=== PATIENT | male | born 1950 | race Two or more races ===

== ENCOUNTER 2020-08-06 11:12 | Outpatient (CLI) | payer OTHER | END 2020-08-06 16:22 | disposition home or self-care (01) | LOC: OFIC 805 11:12 | PROVIDERS: ATTEND Otolaryngology | DX: H92.01 Otalgia, right ear (principal); R09.81 Nasal congestion; J30.89 Other allergic rhinitis; K21.9 Gastro-esophageal reflux disease without esophagitis ==

== ENCOUNTER 2022-12-10 16:46 | Inpatient (IN) | payer OTHER ==
[~2022-12-10] VITALS: Ht 162.6 cm; Wt 129.7 kg
[~2022-12-10 16:46] MED LIST: ACETAMINOPHEN650 M2 PO; ATORVASTATIN CA10 MG; AZITHROMYCIN250 MG PO; BIOTIN1 MG; BUDESONIDE0.5 MG/21 IH; BUSPIRONE HCL5 GM MC; CENTRUM SILVER1 EAC3; COZAAR25 MG; COZAAR25 MG PO; ECOTRIN81 MG; FENOFIBRATE50 MG; GILTUSS TR TAB1 EACH PO; HUMALOG MI100 UNIT/2; INTESTINEX680 M1 PO; JANUVIA25 MG; JANUVIA25 MG PO; JARDIANCE25 MG; JARDIANCE25 MG PO; KETO10TA2 PO; LANTUS SOL100 UNIT/1; LANTUS SOL100 UNIT/1 SQ; LEVALBUTER0.63 MG/3 IH; LIPITOR40 MG PO; METFORMIN HCL1000 M2; MONTELUKAST SOD10 MG; MUCINEX D ER 11 EACH PO; MUCINEX DM ER1 EACH PO; NABUMETONE500 MG PO; NEURONTIN300 MG PO; NORFLEX100MG PO; PEPCID20 MG PO; PERCOCET 5/3251 TAB PO; RISEDRONATE SO150 MG; TRULICITY1.5 MG/0.5 SQ; VITAMIN B-121000 MC2; VITAMIN C250 MG; VOLTAREN ARTHRI20 GM; XARELTO10 MG PO; ZYRTEC10 M3 PO
--- NOTE | 2022-12-10 17:01 | NUR ---
PTE SE OBSERVA A/O X4. PTE VERBALIZA QUE SE GREGORY Y SE LASTIMO EL CODO TIM. PTE SE OBSERVA CON DXT EN 286 MG/DL ARMEN PTE VERBALIZA QUE COMIO HACE 1 HR.
--- NOTE | 2022-12-10 17:44 | NUR ---
PACIENTE EVLUADA POR DR ZIYAD [place] [facility]. ESTUDIOS NOTIFICADOS A PERSONAL CORRESPONDIENTE
[2022-12-11] MEDS ORDERED: VITAMIN C500 M1 (08:36)
[2022-12-11] MEDS ORDERED: FLONASE16 GM (08:36)
[2022-12-11] MEDS ORDERED: ST. JOSEPH ASPI81 M2 (08:36)
[2022-12-11] MEDS ORDERED: DICLOFENAC POTA50 MG (08:36)
[2022-12-11] MEDS ORDERED: FENOFIBRATE48 MG (08:36)
[2022-12-11] MEDS ORDERED: ATORVASTATIN CA40 MG (08:36)
[2022-12-11] MEDS ORDERED: RISEDRONATE SOD35 MG (08:36)
[2022-12-11] MEDS ORDERED: JANUVIA50 MG (08:36)
[2022-12-11] MEDS ORDERED: LOSARTAN POTASS25 MG (08:37)
[2022-12-11] MEDS ORDERED: GABAPENTIN300 M2 (08:37)
[2022-12-11] MEDS ORDERED: OMEPRAZOLE20 MG (08:37)
[2022-12-11] MEDS ORDERED: LORATADINE10 MG (08:37)
[2022-12-11] MEDS ORDERED: GEMFIBROZIL600 MG (08:37)
[2022-12-11] MEDS ORDERED: JARDIANCE25 MG (08:38)
[2022-12-11] MEDS ORDERED: VITAMIN B-122000 MCG (08:38)
== END 2022-12-15 22:26 | DRG 482 ==
LOC: ER 16:46 → SURG 22:32 → MEDI 22:32 → SURG 12-11 22:12
PROVIDERS: Orthopaedic Surgery; ADMIT Specialist; ATTEND Specialist
PROC: BW28ZZZ Computerized Tomography (CT Scan) of Head (ICD-10-PCS; 2022-12-10)
PROC: 0PSL04Z Reposition Left Ulna with Internal Fixation Device, Open Approach (ICD-10-PCS; 2022-12-11)
PROC: 0PW Upper Bones, Revision (ICD-10-PCS; 2022-12-11)
PROC: 0QH706Z Insertion of Intramedullary Internal Fixation Device into Left Upper Femur, Open Approach (ICD-10-PCS; principal; 2022-12-11 22:15)
PROC: 0QU70JZ Supplement Left Upper Femur with Synthetic Substitute, Open Approach (ICD-10-PCS; 2022-12-13)
DX: S72.142A Displaced intertrochanteric fracture of left femur, initial encounter for closed fracture (principal); S52.032A Displaced fracture of olecranon process with intraarticular extension of left ulna, initial encounter for closed fracture; S72.002A Fracture of unspecified part of neck of left femur, initial encounter for closed fracture; W01.0XXA Fall on same level from slipping, tripping and stumbling without subsequent striking against object, initial encounter; I10 Essential (primary) hypertension; E11.9 Type 2 diabetes mellitus without complications; Z79.4 Long term (current) use of insulin

== ENCOUNTER 2022-12-30 08:27 | Outpatient (CLI) | payer OTHER ==
[~2022-12-30 08:27] MED LIST changes: +ATORVASTATIN CA40 MG; +DICLOFENAC POTA50 MG; +FENOFIBRATE48 MG; +FLONASE16 GM; +GABAPENTIN300 M2; +GEMFIBROZIL600 MG; +JANUVIA50 MG; +LORATADINE10 MG; +LOSARTAN POTASS25 MG; +OMEPRAZOLE20 MG; +RISEDRONATE SOD35 MG; +ST. JOSEPH ASPI81 M2; +VITAMIN B-122000 MCG; +VITAMIN C500 M1
== END 2022-12-30 08:31 | disposition home or self-care (01) ==
LOC: RAD 08:27
PROVIDERS: ATTEND Orthopaedic Surgery
DX: S52.032D Displaced fracture of olecranon process with intraarticular extension of left ulna, subsequent encounter for closed fracture with routine healing (principal); S72.142D Displaced intertrochanteric fracture of left femur, subsequent encounter for closed fracture with routine healing

== ENCOUNTER 2023-01-06 10:18 | Outpatient (CLI) | payer OTHER | END 2023-01-06 10:26 | disposition home or self-care (01) | LOC: RAD 10:18 | PROVIDERS: ATTEND Orthopaedic Surgery | DX: S52.032D Displaced fracture of olecranon process with intraarticular extension of left ulna, subsequent encounter for closed fracture with routine healing (principal) ==

== ENCOUNTER 2023-01-21 12:36 | Outpatient (CLI) | payer OTHER | END 2023-01-21 12:38 | disposition home or self-care (01) | LOC: RAD 12:36 | PROVIDERS: ATTEND Orthopaedic Surgery | DX: S52.032D Displaced fracture of olecranon process with intraarticular extension of left ulna, subsequent encounter for closed fracture with routine healing (principal); S72.142D Displaced intertrochanteric fracture of left femur, subsequent encounter for closed fracture with routine healing ==

== ENCOUNTER 2023-02-17 11:00 | Outpatient (CLI) | payer OTHER | END 2023-02-17 11:25 | disposition home or self-care (01) | LOC: TOM 11:00 | PROVIDERS: ATTEND Internal Medicine Geriatric Medicine | DX: R51.0 Headache with orthostatic component, not elsewhere classified (principal) ==

== ENCOUNTER 2024-04-06 12:46 | Outpatient (CLI) | payer OTHER | END 2024-04-06 12:54 | disposition home or self-care (01) | LOC: RAD 12:46 | PROVIDERS: ATTEND Orthopaedic Surgery | DX: M25.551 Pain in right hip (principal); M25.561 Pain in right knee; M25.522 Pain in left elbow ==

== ENCOUNTER → 2024-04-07 11:32 | Outpatient (CLI) | payer OTHER ==
[2024-04-07 13:11] LABS: ALBUMIN 3.7 gm/dL (3.4-5.0); BILIRUBIN TOTAL 0.38 mg/dL (0.3-1.2); CALCIUM 8.6 mg/dL (8.5-10.1); CREATININE SERUM 0.64 mg/dL (0.55-1.02); GFR 90.96; GLOBULINA 3.1 G/DL (2.4-3.5); POTASSIUM 4.05 mEq/L (3.5-5.1); TOTAL PROTEIN 6.8 gm/dL (6.4-8.2)
[2024-04-10 11:10] LABS: CALCIUM IONIZED 4.8 mg/dL (4.5-5.6)
[2024-04-11 13:11] LABS: VITAMIN K 1.69 ng/mL (0.10-2.20)
== END | disposition home or self-care (01) ==
LOC: LAB 11:32
PROVIDERS: ATTEND Orthopaedic Surgery
DX: E55.9 Vitamin D deficiency, unspecified (principal); M85.9 Disorder of bone density and structure, unspecified; E56.1 Deficiency of vitamin K; E21.3 Hyperparathyroidism, unspecified; E88.89 Other specified metabolic disorders; M81.8 Other osteoporosis without current pathological fracture

== ENCOUNTER 2024-11-06 10:51 | Outpatient (CLI) | payer OTHER ==
[~2024-11-06 10:51] MED LIST changes: +DULOXETINE HCL30 MG PO; +PREGABALIN25 MG PO
== END 2024-11-06 10:54 | disposition home or self-care (01) ==
LOC: RAD 10:51
PROVIDERS: ATTEND Orthopaedic Surgery
DX: M25.522 Pain in left elbow (principal); M25.551 Pain in right hip; M25.552 Pain in left hip

== ENCOUNTER 2024-11-22 09:10 | Outpatient (CLI) | payer OTHER ==
[2024-11-22 10:35] LABS: COL EPI 151 SECONDS (82-175)
[2024-11-22 10:40] LABS: EOS # 0.16 (0.04-0.54); EOS % 3.5 % (0.7-7.0); HEMATOCRIT 38.1 % (34.1-44.9); LYMPH # 1.32 (1.18-3.74); LYMPH % 29.1 % (19.3-53.1); MEAN CORPUSCULAR HEMOGLOBIN 30.4 pg (25.6-32.2); MONO # 0.46 (0.24-0.82); MONO % 10.1 % (4.7-12.5); NEUT # 2.59 (1.56-6.13); NEUT % 57.1 % (34.0-71.1); PLATELET COUNT 157 K/uL (163-369); RED BLOOD COUNT 4.27 M/uL (3.93-5.22); RED CELL DISTRIBUTION WIDTH 12.7 % (11.6-14.4)
[2024-11-22 11:02] LABS: INR 0.99; PARTIAL THROMBOPLASTIN TIME 24.8 SECONDS (22.0-34.0); PROTHROMBIN TIME 10.8 SECONDS (9.0-11.5)
[2024-11-22 12:21] LABS: PH,URINE 5.5 (5.0-8.0); URINE APPEARANCE Clear; URINE BILIRRUBIN Negative (NEGATIVE); URINE BLOOD Negative; URINE COLOR Yellow; URINE KETONE Negative (NEGATIVE); URINE LEUKOCYTE Small; URINE NITRATE Negative; URINE PROTEIN Negative (NEGATIVE)
[2024-11-22 12:22] LABS: URINE BACTERIA 3961.9 uL (0.0-1933); URINE EPITHELIAL CELLS 77.7 uL (0.0-38.8); URINE RBC 2.9 uL (0.0-20.8); URINE WBC 253.1 uL (0.0-23.2)
[2024-11-22 12:25] LABS: URINE CAST 0.29 uL (0.0-1.40); URINE GLUCOSE >=1000 MG/DL (NEGATIVE)
[2024-11-22 13:18] LABS: ALBUMIN 3.6 gm/dL (3.4-5.0); BILIRUBIN TOTAL 0.69 mg/dL (0.3-1.2); CALCIUM 8.7 mg/dL (8.5-10.1); CREATININE SERUM 0.78 mg/dL (0.55-1.02); GFR 72.19; GLOBULINA 3.1 G/DL (2.4-3.5); POTASSIUM 4.37 mEq/L (3.5-5.1); TOTAL PROTEIN 6.7 gm/dL (6.4-8.2)
== END 2024-11-22 09:23 | disposition home or self-care (01) ==
LOC: RAD 09:10 → LAB 09:10
PROVIDERS: ATTEND Orthopaedic Surgery
DX: D64.9 Anemia, unspecified (principal); E88.89 Other specified metabolic disorders; D68.8 Other specified coagulation defects; N39.0 Urinary tract infection, site not specified; Z11.9 Encounter for screening for infectious and parasitic diseases, unspecified; Z22.322 Carrier or suspected carrier of Methicillin resistant Staphylococcus aureus; Z76.89 Persons encountering health services in other specified circumstances

== ENCOUNTER 2024-11-22 10:49 | Outpatient (CLI) | payer OTHER | END 2024-11-22 10:50 | disposition home or self-care (01) | LOC: RAD 10:49 | PROVIDERS: ATTEND Orthopaedic Surgery | DX: Z76.89 Persons encountering health services in other specified circumstances (principal) ==

== ENCOUNTER 2025-02-12 12:57 | Emergency (ER) | payer OTHER ==
[~2025-02-12] VITALS: Ht 162.6 cm; Wt 60.8 kg
[2025-02-12] MEDS ORDERED: GLIPIZIDE5 MG PO (13:19)
[2025-02-12] MEDS ORDERED: METHYLPREDNISOLONE SOD SUCC 125 MG VIAL IM ONE (13:30)
[2025-02-12] MEDS ORDERED: VAGISIL CREAM28 G1 TOP (14:42)
[2025-02-12] MEDS ORDERED: MEDROLPACK PO (14:42)
== END 2025-02-12 14:46 | disposition home or self-care (01) ==
LOC: ER 12:57
DX: M25.50 Pain in unspecified joint (principal); E11.9 Type 2 diabetes mellitus without complications; Z79.84 Long term (current) use of oral hypoglycemic drugs; Z88.0 Allergy status to penicillin
CPT/HCPCS: 73130; 96372; 99283; J3490

== ENCOUNTER 2025-02-14 13:02 | Outpatient (CLI) | payer OTHER ==
[~2025-02-14 13:02] MED LIST changes: +GLIPIZIDE5 MG PO; +MEDROLPACK PO; +VAGISIL CREAM28 G1 TOP
== END 2025-02-14 13:06 | disposition home or self-care (01) ==
LOC: RAD 13:02
PROVIDERS: ATTEND Orthopaedic Surgery
DX: T84.84XD Pain due to internal orthopedic prosthetic devices, implants and grafts, subsequent encounter (principal)

== ENCOUNTER 2025-04-15 14:00 | Emergency (ER) | payer OTHER ==
[~2025-04-15] VITALS: Ht 162.6 cm; Wt 62.6 kg
[~2025-04-15 14:00] MED LIST changes: +ZOFRAN8 MG PO
[2025-04-15] MEDS ORDERED: PROTONIX40 MG (15:45)
[2025-04-15] MEDS ORDERED: GLIPIZIDE5 MG (15:58)
[2025-04-15] MEDS ORDERED: HUMALOG TE100 UNIT/1 (16:00)
[2025-04-15] MEDS ORDERED: LOSARTAN POTASS50 MG (16:00)
[2025-04-15] MEDS ORDERED: 0.9 % SODIUM CHLORIDE 1,000 ML IV SCH (16:30)
[2025-04-15] MEDS ORDERED: ONDANSETRON HCL 2 MG/ML VIAL IV ONE (16:30)
[2025-04-15] MEDS ORDERED: FAMOtidine 10 MG/ML (4ML VIAL) IV ONE (16:30)
[2025-04-15] MEDS ORDERED: MORPHINE SULFATE 2 MG/ML SYRINGE IV ONE (16:45)
[2025-04-15 17:03] LABS: BASO % 0.9 % (0.1-1.2); EOS # 0.24 (0.04-0.54); EOS % 2.7 % (0.7-7.0); LYMPH # 2.70 (1.18-3.74); LYMPH % 30.8 % (19.3-53.1); MEAN PLATELET VOLUME 9.80 fl (9.4-12.4); MONO # 0.82 (0.24-0.82); MONO % 9.3 % (4.7-12.5); NEUT # 4.93 (1.56-6.13); NEUT % 56.2 % (34.0-71.1); RED CELL DISTRIBUTION WIDTH 12.6 % (11.6-14.4)
[2025-04-15 17:10] LABS: ERYTHROCYTE SEDIMENTATION RATE 30 mm/hr (0-30)
[2025-04-15 17:32] LABS: INR 1.04
[2025-04-15 17:36] LABS: ALT/SGPT 46.0 U/L (12-78); AST/SGOT 25.0 U/L (15-37); BILIRUBIN TOTAL 0.79 mg/dL (0.3-1.2); BUN CREA RATIO 23.0 (7.0-25.0); CREATININE SERUM 0.79 mg/dL (0.55-1.02); GFR 71.14; GLOBULINA 3.5 G/DL (2.4-3.5)
[2025-04-15 17:38] LABS: OSMOLALITY SERUM 284.0 MOSM/KG (275-295)
[2025-04-15 17:39] LABS: GLUCOSE FASTING 239.0 mg/dL (65-100)
[2025-04-15 17:46] LABS: URINE APPEARANCE Cloudy; URINE BILIRRUBIN Negative (NEGATIVE); URINE BLOOD Negative; URINE COLOR Yellow; URINE KETONE Trace (NEGATIVE); URINE LEUKOCYTE Trace; URINE NITRATE Negative; URINE PROTEIN Negative (NEGATIVE); URINE UROBILINOGEN 0.2 E.U./dl
[2025-04-15 17:50] LABS: URINE BACTERIA 1939.2 uL (0.0-1933); URINE EPITHELIAL CELLS 55.3 uL (0.0-38.8); URINE WBC 141.0 uL (0.0-23.2)
[2025-04-15 17:54] LABS: URINE CAST 0.14 uL (0.0-1.40); URINE GLUCOSE >=1000 MG/DL (NEGATIVE); URINE RBC 1.9 uL (0.0-20.8)
[2025-04-15] MEDS ORDERED: CIPROFLOXACIN500 MG PO (21:55)
[2025-04-15] MEDS ORDERED: METRONIDAZOLE500 MG PO (21:55)
[2025-04-15] MEDS ORDERED: PROTONIX20 MG PO (21:55)
== END 2025-04-15 22:35 | disposition home or self-care (01) ==
LOC: ER 14:01
PROVIDERS: Student in an Organized Health Care Education/Training Program
DX: K57.90 Diverticulosis of intestine, part unspecified, without perforation or abscess without bleeding (principal); N39.0 Urinary tract infection, site not specified; K64.9 Unspecified hemorrhoids; K52.9 Noninfective gastroenteritis and colitis, unspecified; R10.9 Unspecified abdominal pain; E11.9 Type 2 diabetes mellitus without complications; Z79.4 Long term (current) use of insulin; Z88.0 Allergy status to penicillin
CPT/HCPCS: 36415; 74177; 96365; 96366; 99284; J2270; J2405; J3490; J7030; Q9965

== ENCOUNTER 2025-06-18 17:30 | Emergency (ER) | payer OTHER ==
[~2025-06-18] VITALS: Ht 162.6 cm; Wt 62.6 kg
[~2025-06-18 17:30] MED LIST changes: +CIPROFLOXACIN500 MG PO; +GLIPIZIDE5 MG; +HUMALOG TE100 UNIT/1; +LOSARTAN POTASS50 MG; +METRONIDAZOLE500 MG PO; +PROTONIX20 MG PO; +PROTONIX40 MG
[2025-06-18] MEDS ORDERED: PEPCID AC20 MG PO (20:48)
[2025-06-18] MEDS ORDERED: MUPIROCIN15 GM TOP (20:48)
[2025-06-18] MEDS ORDERED: CLEOCIN HCL150 MG PO (20:48)
[2025-06-18] MEDS ORDERED: AZITHROMYCIN 500 MG TABLET PO ONE (21:00)
== END 2025-06-18 22:38 | disposition home or self-care (01) ==
LOC: ER 17:31
DX: L08.89 Other specified local infections of the skin and subcutaneous tissue (principal); M54.59 Other low back pain; E11.9 Type 2 diabetes mellitus without complications; Z79.4 Long term (current) use of insulin; Z88.0 Allergy status to penicillin; L08.9 Local infection of the skin and subcutaneous tissue, unspecified